=== PATIENT | male | born 1955 | race Caucasian/White ===

== ENCOUNTER → 2018-06-19 00:41 | Outpatient (CLI) | payer BC, SELFPAY ==
[2018-06-19 10:27] LABS: Cholesterol 229 mg/dL (50-200); HDL Cholesterol 47 mg/dL (40-60); LDL CHOLESTEROL 166 mg/dL (<100); Triglyceride 106 mg/dL (30-150)
== END ==
PROVIDERS: PCP Emergency Medicine; Visit Provider Emergency Medicine
DX: E78.5 Hyperlipidemia, unspecified (principal); Z12.5 Encounter for screening for malignant neoplasm of prostate; N40.0 Benign prostatic hyperplasia without lower urinary tract symptoms
CPT/HCPCS: 36415; 80061; 83721; 84153

== ENCOUNTER → 2018-07-01 08:25 | Outpatient (CLI) | payer BC, SELFPAY ==
[2018-07-02 09:57] LABS: HIV-1/2 Ag & Ab Screen Negative (NEGAT)
[2018-07-02 10:42] LABS: Hepatitis C Ab w Rflx HCV PCR Negative (NEGAT)
[2018-07-02 15:00] LABS: Chlamydia Result Negative; GC Result Negative; Specimen Description URINE
[2018-07-02 15:10] LABS: Syphilis Serology (RPR) Negative (Negative)
== END ==
PROVIDERS: PCP Emergency Medicine; Visit Provider Emergency Medicine
DX: Z11.59 Encounter for screening for other viral diseases (principal); Z11.4 Encounter for screening for human immunodeficiency virus [HIV]; Z11.3 Encounter for screening for infections with a predominantly sexual mode of transmission; Z11.9 Encounter for screening for infectious and parasitic diseases, unspecified
CPT/HCPCS: 36415; 86803; 87389; 87491; 87591; 86592

== ENCOUNTER 2018-07-31 10:59 | Outpatient (REF) | payer BC, SELFPAY ==
--- NOTE | 2018-07-31 09:38 | TONG_PTH ---
PATIENT: Tr Hood LOC: [facility] U#:[id number] AGE/SX: 62/M ROOM: RE07/31/[address]: Elliott Purdy MD : 1955 BED: DIS: 07/31/2018 SPEC #: [id number] RECD: 07/31/18 12:49 STATUS: DELFINO REQ #: [id number] JUAN PABLO: 07/31/18 09:[address]: Elliott Purdy DEPT: Surgical Specimen RECD BY: Maria E Plunkett ENTERED: 07/31/18 12:50 SP TYPE: LIZZY CLAYTON DR: Damion Sosa DO Tissues: 1 - TONGUE BIOPSY Procedures: GROSS AND MICRO LEVEL 4 Comments: [id number]
== END 2018-07-31 11:19 ==
LOC: LBN 10:59
PROVIDERS: PCP Emergency Medicine; Visit Provider Otolaryngology
DX: K14.8 Other diseases of tongue (principal); K13.21 Leukoplakia of oral mucosa, including tongue
CPT/HCPCS: 88305

== ENCOUNTER 2018-10-19 01:28 | Outpatient (CLI) | payer BC, SELFPAY ==
[2018-10-19 08:20] LABS: Cholesterol 259 mg/dL (50-200); HDL Cholesterol 44 mg/dL (40-60); LDL CHOLESTEROL 190 mg/dL (<100); Triglyceride 146 mg/dL (30-150)
== END 2018-10-19 01:48 ==
PROVIDERS: PCP Emergency Medicine; Visit Provider Emergency Medicine
DX: E78.5 Hyperlipidemia, unspecified (principal)
CPT/HCPCS: 36415; 80061; 83721

== ENCOUNTER 2019-04-22 02:52 | Outpatient (CLI) | payer BC, SELFPAY ==
[2019-04-22 10:37] LABS: Calculated LDL 178; Cholesterol 244 mg/dL (50-200); HDL Cholesterol 46 mg/dL (40-60); Triglyceride 100 mg/dL (30-150)
== END 2019-04-22 03:12 ==
PROVIDERS: PCP Emergency Medicine; Visit Provider Emergency Medicine
DX: E78.5 Hyperlipidemia, unspecified (principal)
CPT/HCPCS: 36415; 80061; 83721

== ENCOUNTER 2020-02-17 16:40 | Outpatient (REF) | payer BC, SELFPAY ==
--- NOTE | 2020-02-17 12:20 | TONG_PTH ---
PATIENT: Tr Hood LOC: [facility] U#:[id number] AGE/SX: 64/M ROOM: RE02/17/[address]: Elliott Purdy MD : 1955 BED: DIS: 02/17/2020 SPEC #: [id number] RECD: 02/17/20 16:55 STATUS: DELFINO REQ #: [id number] JUAN PABLO: 02/17/20 12:[address]: Elliott Purdy DEPT: Surgical Specimen RECD BY: Maria E Plunkett ENTERED: 02/17/20 17:02 SP TYPE: LIZZY CLAYTON DR: Damion Sosa DO Tissues: 1 - TONGUE BIOPSY Procedures: GROSS AND MICRO LEVEL 4 SPECIAL STAIN 1 Comments: [id number]
== END 2020-02-17 17:00 ==
LOC: LBN 16:40
PROVIDERS: PCP Emergency Medicine; Visit Provider Otolaryngology
DX: K14.8 Other diseases of tongue (principal); D37.02 Neoplasm of uncertain behavior of tongue
CPT/HCPCS: 88305; 88312

== ENCOUNTER → 2023-10-02 02:15 | Outpatient (CLI) | payer BC, SELFPAY ==
--- NOTE | 2023-10-02 07:15 | DI.NM_ITS ---
APPROVED REPORT Exam: Exercise Treadmill Patient Location: Out-Patient Room/Bed: Stress Nurse: Jaeme Fine RN Ordering Provider:VARGHESE ESQUEDA, Contact Number: [phone] BMI: 28.88 Baseline Rhythm: SR - PVC's, T wave inversion in lead III/V6, couplet, intermittent bigeminy Indications: Chest pain Medical History Medical History: HLD, dilated aortic root, CAD, hx of NSTEMI w/ stents, EF 60% Cardiac Medications: Asa, Nitro PRN Allergies: lisinopril, statins Cardiac Risk Factors: +family history, CVD, HTN, HLD Previous Cardiac Procedures: Hx of PCI in 2016 Pretest Chest Pain Characteristics: No chest pain Exercise History: Indeterminate Physical Disabilities: Hx of plantar faciatis Lung Sounds: Clear Heart Sounds: Regular, S1/S2 Stress Test Details Test: Exercise stress testing was performed using a Mac protocol. Nuclear Acquisition: Rest Tc-99m/Stress Tc-99m 1 day Rest Isotope: Tc-99m Sestamibi. Dose: 11 Date: 10/02/2023 Injection Time: 0900 Stress Isotope: Tc-99m Sestamibi. Dose: 33 Date: 10/02/2023 Injection Time: 10:35 HR Resting HR Supine: 75 bpm Max Heart Rate (APMHR): 154.541929 bpm Resting HR Standin bpm Target HR (85% APMHR): 130.526330 bpm Max HR Achieved: 174 bpm % of APMHR: 112.99 Recovery HR: 84 bpm HR response to stress: Accelerated HR response to stress BP Resting BP Supine: 184/92 mmHg Resting BP Standin/86 mmHg Max BP: 212/98 mmHg Recovery BP: 174/82 mmHg BP response to stress: Normal blood pressure response to stress. ECG Resting ECG: Sinus Rhythm Ectopy: PVC's, couplet, int. bigeminy, t wave inversion in lead III/V6 Stress ECG: Sinus Tachycardia, , SVT ST Change: Diffuse ST/T wave changes @ peak exercise Stage: 3 Arrhythmia: Couplets, PAC's, SVT Comment: Patient asymptomatic Recovery ECG: Sinus Rhythm Recovery ST Change: Diffuse ST/T wave changes returned to baseline with recovey Recovery Arrhythmia: PVC's, PAC's, couplet, bigeminy Clinical Reason for Termination: ST changes, SVT Stress Symptoms: None Exercise duration: 6 min50 sec Highest Stage Reached: Stage 3: 3.4 mph at 14% grade. Exercise capacity: 8.3 METs Angina Score: None Soto Treadmill Score: 6 Rate Pressure Product: [id number] Stress ECG Conclusion 1. Resting electrocardiogram showed first-degree AV block, late transition, PVCs 2. Patient exercised on the Mac protocol and completed a workload of 8.3 METS 3. Normal heart rate and blood pressure response to exercise. The patient achieved greater than 100% of predicted heart rate for age 4. Electrocardiographic portion of the test showed 1 to [address] depression in the inferior and ant erolateral leads at peak exercise 5. Atrial and ventricular ectopy was noted 6. See MPI report Soto Treadmill Score is 6 which is Low risk. Stress Test Summary STAGE Time (mins) Speed (mph) Grade (%) HR BP SpO2 SYMPTOMS METS Supine 75 184/92 Standing 82 162/86 1 3 1.7 10 108 135/74 4.5 2 6 2.5 12 126 7 3 9 3.4 14 164 10 1 min recovery 117 190/88 3 min recovery 92 212/98 6 min recovery 86 198/94 9 min recovery 84 184/92 12 min recovery 84 174/82 Patient presented for stress test reporting that he had an episode where he had some chest pressure a nd it felt like something was trying to escape his chest. Patient also reported that with strenuous exercise he often felt like there was fluid that would build up and he needed to cough it up. During stress test patient began stage 3 and went into SVT, max rate of 174 bpm. The test was termina jovi at this time and patient did not report any symptoms. During recovery, patient stated he felt lik e if he had continued exercising he would have induced that feeling he described about fluid build up . Patient recovered and completed the final imaging portions of his test. reviewed his stress t est and had no specific concerns related to the 12 lead. MPI Conclusion Myocardial perfusion is notable for moderate inferior wall ischemia. There is no evidence of myocard ial infarction Ejection fraction is 42% with inferior wall motion abnormality Radiologist Interpretation Radiologist agrees with Consultant's Interpretation. Radiologist Interpretation by: Ghada Jordan MD Interpretation Date/Time: 10/02/2023 15:35:44
== END ==
PROVIDERS: PCP Family Medicine; Visit Provider Family Medicine
DX: R07.9 Chest pain, unspecified (principal)
CPT/HCPCS: 78452; 93017

== ENCOUNTER 2023-10-06 15:33 | Inpatient (IN) | payer BC, SELFPAY ==
[2023-10-06] VITALS (75 sets, daily range): BP systolic 154–227; BP diastolic 69–97; PULSE 62–87; RESP 11–30; TEMP 37; O2SAT 94–99
--- NOTE | 2023-10-06 15:30 | RT.EKG_ITS ---
APPROVED REPORT Exam: Resting ECG Reason for Exam: weak fatigued Patient Location: E HR:79 bpm ECG Measurements Heart Rate 79 AXIS IA 214 P 16 QRSd 102 QRS -30 QT 417 T 25 QTc 477 Conclusion sinus 79 normal axis PVCs LVH
[2023-10-06 16:11] LABS: Abs Immature Grans 0.02 10^3/uL (0.0-0.06); Absolute Basophil Count 0.04 10^3/uL (0.0-0.2); Absolute Eosinophil Count 0.23 10^3/uL (0.0-0.7); Absolute Lymphocyte Count 1.45 10^3/uL (1.2-3.4); Absolute Monocyte Count 0.92 10^3/uL (0.1-0.8); Absolute Neutrophil Count 3.54 10^3/uL (1.2-6.7); Basophils % 0.6; Eosinophils % 3.7; HCT 51.7 % (40.0-50.0); HGB 17.2 g/dL (13.5-17.5); Immature Grans % 0.3; Lymphocytes % 23.4; MCH 28.5 pg (27.0-33.0); MCHC 33.3 % (32.0-36.0); MCV 86 fL (80-95); MPV 9.3 fL (8.0-11.0); Monocytes % 14.8; Neutrophils % 57.2; Platelet Count 205 10^3/uL (130-400); RBC 6.04 10^6/uL (4.36-5.78); RDW 13.2 % (11.8-14.1); RDW-SD 41.7 fL
[2023-10-06] MEDS: Omnipaque 350 MG/ML 500 ML BTL-Imaging package 85 ML IJ (16:22)
[2023-10-06] MEDS: Normal Saline - Diluent 50 ML VIAL IJ (16:25)
[2023-10-06 16:29] LABS: ALT 35 U/L (16-63); AST 56 U/L (15-37); Albumin 3.6 g/dL (3.4-5.0); Alkaline Phosphatase 120 U/L (46-116); Anion Gap 3.7 mmol/L (3-11); BUN 11 mg/dL (7-18); Bilirubin, Total 0.8 mg/dL (0.2-1.0); CO2 30.3 mmol/L (21.0-32.0); Calcium 9.1 mg/dL (8.5-10.1); Chloride 102 mmol/L (98-107); Diff Comment RBC Morph Reviewed; Estimated GFR 83.01 (mL/min/1.73m2); Glucose 126 mg/dL (74-106); Magnesium 2.2 mg/dL (1.8-2.4); Potassium 3.7 mmol/L (3.5-5.1); RBC Morphology Normal; Sodium 136 mmol/L (136-145); Troponin I < 50 ng/L (<or=60)
[2023-10-06 16:34] LABS: TSH (W/Ref FT4) 2.27 uIU/mL (0.36-3.74)
--- NOTE | 2023-10-06 16:35 | DI.CT_ITS ---
Exam(s) CT BRAIN NECK CTA EXAM: CT BRAIN NECK CTA CLINICAL HISTORY: slurred speech. TECHNIQUE: Imaging Protocol: Axial CT angiography was performed with multi-slice acquisition and mu lti-planar and 3D reconstructions. CONTRAST MATERIAL: Intravenous: Omnipaque 350 Contrast volume:100 ml COMPARISON: none FINDINGS: CT Head W/O and W contrast: Ventricles and Extra axial spaces: Normal in size and morphology for the patient's age. Hemorrhage: None. Cerebral parenchyma: No evidence of acute infarct or mass.. Old left basal ganglia lacunar infarct . White matter changes of small vessel disease. Midline shift: None. Brainstem/Cerebellum: No acute findings.. Calvarium: Normal. Visualized Paranasal sinuses/Mastoids: Mild ethmoid sinus mucosal thickening. Soft Tissues: Unremarkable. Enhancement: Normal. CTA Brain W: Internal Carotid Arteries: Petrous: Normal. Cavernous: Normal. Cerebral: Normal. Middle Cerebral Arteries: Right: No aneurysm, occlusion or significant stenosis. Left: No aneurysm, occlusion or significant stenosis. Anterior Cerebral Arteries: Right: No aneurysm, occlusion or significant stenosis. Left: No aneurysm, occlusion or significant stenosis. Posterior cerebral Arteries: Right: No aneurysm, occlusion or significant stenosis. Left: No aneurysm, occlusion or significant stenosis. Vertebral Arteries: Right: No aneurysm, occlusion or significant stenosis. Left: No aneurysm, occlusion or significant stenosis. Basilar Artery: Diminutive caliber. No aneurysm, occlusion or significant stenosis. CTA Neck W: Common Carotid: Right: No dissection, occlusion or significant stenosis. Left: No dissection, occlusion or significant stenosis. External Carotid: Right: No dissection, occlusion or significant stenosis. Left: No dissection, occlusion or significant stenosis. Internal Carotid: Right: Mild calcific plaque proximally. No dissection, occlusion or significant stenosis. Left: Mild calcific plaque proximally no dissection, occlusion or significant stenosis. Vertebral Artery: Right: Somewhat diminutive caliber. No dissection, occlusion or significant stenosis. Left: No dissection, occlusion or significant stenosis. Lung Apices: Limited evaluation due to respiratory motion. Multiple small, less than 1 cm, nodules a re noted in both lungs both upper and lower lobes. Bones: No acute abnormality. Anterior fusion warren dware from C4 through C7. Degenerative changes C3-4. Soft Tissues: Normal. IMPRESSION: 1. CT a brain normal CTA examination of the [place]. 2. Head CT: Old left basal ganglia lacunar infarct. 3. CTA neck: Mild calcific plaque at the proximal internal carotid arteries without significant steno sis. 4. Numerous bilateral pulmonary nodules. Findings could represent metastatic disease. Chest CT coul d be performed for further evaluation. Findings called to Maria E Allan of the emergency department Unexpected findings RADIATION DOSE DELIVERED: Total DLP DATA REPOSITORY: All CT scans at this facility are submitted to the National Radiology Data Registry (NRDR) Dose Index Registry (DIR) with the [employer] (ACR). RADIATION OPTIMIZATION: All CT scans at this facility use at least one of these dose optimization te chniques: automated exposure control; mA and/or kV adjustment per patient size (includes targeted exa ms where dose is matched to clinical indication); or iterative reconstruction.
--- NOTE | 2023-10-06 16:49 | DI.CT_ITS ---
Exam(s) CT CHEST WO EXAM: CT CHEST WO CLINICAL HISTORY: pulmonary lesions. TECHNIQUE: Imaging protocol: Axial computed tomography images were obtained and coronal and sagittal reformatted images were created and reviewed. COMPARISON: CT CT BRAIN NECK CTA from 10/06/2023 FINDINGS: Tracheobronchial tree: Patent where visualized. Pulmonary parenchyma: There are numerable noncalcified pulmonary nodules up to 8 mm in size. There i s an irregular spiculated nodular area in the base of the right lower lobe measuring 1.6 cm in diamet er. Mediastinum and [place]: Mildly enlarged lymph nodes are seen in the mediastinum. The largest measures 1.6 x 0.8 cm. The esophagus is unremarkable. Thyroid gland: Unremarkable. Pleura: No effusion or pneumothorax. Heart: Mild cardiomegaly. Coronary artery calcification and/or stents are present. No pericardial e ffusion. Aorta: Thoracic aorta non-dilated. Atherosclerosis is present. Upper abdomen: There is contrast seen in the renal collecting systems secondary to the contrast CT s can from earlier in the day. Lymph nodes: Within normal limits. Soft tissues: Unremarkable. Bones:Within normal limits for the patient's age. Anterior cervical disc fusion is seen at the lower cervical spine. IMPRESSION: 1. Irregular spiculated nodular in the base of the right lower lobe measuring 1.6 cm in diameter. Pr imary or metastatic neoplastic process is suspected. 2. Multiple noncalcified pulmonary nodules up to 8 mm in size. Differential considerations should in clude metastatic disease, acute infection/inflammation and prior granulomatous disease. 3. PET CT scan of the chest should be considered for further evaluation. 4. Findings were discussed with Maria E Allan at 5:36 p.m. on 10/06/2023. RADIATION DOSE DELIVERED: Total DLP Total DLP DATA REPOSITORY: All CT scans at this facility are submitted to the National Radiology Data Registry (NRDR) Dose Index Registry (DIR) with the [employer] (ACR). RADIATION OPTIMIZATION: All CT scans at this facility use at least one of these dose optimization te chniques: automated exposure control; mA and/or kV adjustment per patient size (includes targeted exa ms where dose is matched to clinical indication); or iterative reconstruction.
[2023-10-06 16:51] LABS: Bilirubin Negative (Negative); Blood Negative (Negative); Clarity Clear (Clear); Glucose Negative (Negative); Ketones Negative (Negative); Leukocyte Esterase Negative (Negative); Nitrite Negative (Negative); Specific Gravity 1.015 (1.005-1.025)
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
[2023-10-06] MEDS: Labetalol 100 MG/20 ML VIAL 10 MG IVP (19:21)
[2023-10-06 19:28] LABS: Troponin I < 50 ng/L (<or=60)
--- NOTE | 2023-10-06 19:46 | NUR.NOTE ---
Pt able to swallow water without difficulty.
[2023-10-06] MEDS: Losartan 25 MG TAB PO (20:39)
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
[2023-10-07] VITALS (62 sets, daily range): BP systolic 157–170; BP diastolic 71–84; PULSE 59–80; RESP 12–31; TEMP 35.7–35.9; O2SAT 96–98
--- NOTE | 2023-10-07 | DI.MRI_ITS ---
Exam(s) MR BRAIN WO/W EXAM: MR BRAIN WO/W CLINICAL HISTORY: intermittent speech deficits, ?CVA vs malignancy TECHNIQUE: Multiplanar multisequence MRI of the brain was performed. CONTRAST MATERIAL: IV Contrast: 20 mL of Dotarem contrast administered. COMPARISON: CT CT BRAIN NECK CTA from 10/06/2023 FINDINGS: VENTRICLES AND EXTRA AXIAL SPACES: Normal in size and morphology for the patient's age. HEMORRHAGE: None. CEREBRAL PARENCHYMA: There is a area of restricted diffusion in the right cox radiata consistent w ith an acute/subacute infarct. No space-occupying lesion identified. There are areas of hyperintense signal seen in the white matter on the FLAIR and T2 weighted images consistent with small vessel isc hemic disease. MIDLINE SHIFT: None. BRAINSTEM/CEREBELLUM: Normal. CALVARIUM: Normal. ENHANCEMENT: No suspicious enhancement identified. VISUALIZED PARANASAL SINUSES/MASTOIDS: Clear. [place]: Normal flow void. [place]: Unremarkable. OTHER FINDINGS: IMPRESSION: 1. Findings of an acute infarct in the right cox radiata. 2. Cerebral atrophy and small vessel ischemic disease consistent with the patient's age. 3. No evidence of an intracranial mass or enhancing lesion. 4. Findings were discussed with the primary care team at 10:56 a.m. on 10/07/2023. DATA REPOSITORY:
--- NOTE | 2023-10-07 | DI.US_ITS ---
Exam(s) US ABDOMEN EXAM: US ABDOMEN CLINICAL HISTORY: transaminitis TECHNIQUE: Ultrasound abdomen performed using standard protocol. COMPARISON: No exams were available for comparison FINDINGS: ABDOMINAL AORTA AND IVC: Visualized portions normal caliber. PANCREAS: Normal where visualized. LIVER: There is an echogenic liver consistent with fatty infiltration. The left lobe is largely obsc ured by overlying bowel. The liver measures 14.2 cm long. Hepatopedal flow in the Portal Vein. GALLBLADDER:No evidence of cholelithiasis. No evidence of wall thickening. No pericholecystic fluid i dentified. BILIARY SYSTEM: Common bile duct measures < 7 mm. No intrahepatic biliary ductal dilation. BONDS'S SIGN: Negative. KIDNEYS: Kidneys are symmetric in size. No evidence of renal calculi. No evidence of hydronephrosis. There is a 1.0 x 1.1 x 1.0 cm simple cyst in the right kidney. No follow-up is recommended. SPLEEN: Not enlarged. ASCITES: None seen. IMPRESSION: 1. Fatty infiltration of the liver. 2. No evidence of cholelithiasis or biliary ductal dilatation. DATA REPOSITORY:
--- NOTE | 2023-10-07 | DI.US_ITS ---
APPROVED REPORT EXAM: Comprehensive 2D, Doppler, and color-flow Echocardiogram Patient Location: ER Room/Bed: 7 [employer] Salesperson: Estelle Raines RDCS (AE) Indications: TIA, Known CAD Other Information Study Quality: Adequate. Technically limited study due to exam done bedside ER. Conclusion Normal left ventricular wall thickness and chamber size. Ejection fraction is 45 to 50%. There are inferior posterior wall motion abnormalities (hypokinesis). There is stage I diastolic dysfunction Normal right ventricular size and systolic function Both atria are normal in size The aortic valve is trileaflet and sclerotic with mild regurgitation Normal mitral valve with moderate regurgitation Estimated right ventricular systolic pressure is 28 mmHg Dilated ascending aorta measuring 4.14 cm Wall motion Left Ventricle The left ventricle is normal size. Left ventricular systolic function is mildly decreased. There is n ormal left ventricular wall thickness. Regional wall motion abnormalities are noted. Inferior and pos terior franco are hypocontractile There is no ventricular septal defect visualized. LVEF is 47%. Right Ventricle The right ventricle is normal size. The right ventricular systolic function is normal. Atria The left atrium size is normal. The right atrium size is normal. The interatrial septum is intact wit h no evidence for an atrial septal defect. Aortic Valve The Aortic valve is sclerotic. Aortic valve is trileaflet. No hemodynamically significant valvular ao rtic stenosis. Mild aortic regurgitation. Mitral Valve The mitral valve is normal in structure. No evidence of mitral valve stenosis. Moderate mitral regurg itation. Tricuspid Valve The tricuspid valve is normal in structure. There is no tricuspid valve stenosis. Trace tricuspid reg urgitation. The RVSP is 28.5g. Pulmonic Valve The pulmonary valve is normal in structure. There is no pulmonic valvular stenosis. Mild pulmonic reg urgitation. Great Vessels The aortic root is normal in size. The ascending aorta is moderately dilated. Aortic arch is normal in caliber. IVC is normal in size and collapses >50% with inspiration. Pericardium There is no pericardial effusion. 2D Dimensions IVSD d PLAX 0.93 cm M: 0.6-1.2 Ao Root d 3.53 cm M: 3.1 - 3.7 LVPW d PLAX 0.98 cm M: 0.6 - 1.2 Ao Asc Diam d 4.14 cm M: 2.6 - 3.4 LVID d PLAX 5.41 cm M: 4.2 - 5.8 LVDs 4.04 cm M: 2.5 - 4.0 LV EF Teichholz 49.5 % FS 25.32 % LV EDV (Teich) 142.2 mL LV ESV (Teich) 71.8 mL M-Mode TAPSE 2.17 cm (M/F) >1.7 Auto EF LV EDV A4C 182.3 mL LV EDV A2C 155.0 mL LV EDV BP 169.0 mL LV ESV A4C 93.2 mL LV ESV A2C 83.3 mL LV ESV BP 88.7 mL LVEF(%) A4C 48.8 % LVEF(%) A2C 46.3 % LVEF(%) BP 47.5 % LV SV A4C 89.0 ml LV SV A2C 71.7 ml LV SV BP 80.3 ml LV CO A4C 6.4 L/min LV CO A2C 5.0 L/min LV CO BP 5.7 L/min HR A4C 71.83 BPM HR A2C 70.32 BPM LV EDV Index (BP) LV Strain Long Pk Overal Avg (s) 15.47 RV Strain Global Peak Long. Strain A4C 14.21 Global Peak Long. Strain A4C FW 17.61 LA Volume LA Length A4C 5.1 cm LA Length A2C 5.8 cm LA Area A4C s 14.87 cm2 LA Area A2C s 22.60 cm2 LA Vol A4C A-L 36.49 mL LA Vol A2C A-L 74.84 mL LA Vol Biplane A-L 55.5 mL LA Vol/BSA A4C A-L LA Vol/BSA A2C A-L LA Vol/BSA BP A-L 24.7 mL/m2 LA Vol A4C MOD 34.7 mL LA Vol A2C MOD 69.2 mL LA Vol BP MOD 51.8 mL RA Volume RA Area A4C 11.8 cm2 RA ESV A4C (A-L) 24.9mL RA Vol/BSA A4C A-L RA Length A4C 4.7 cm RA ESV A4C (MOD) 23.4mL LV Diastology MV E' medial 0.052 (>0.07 m/s) MV E Vmax 0.79 (0.4-1.3 m/s) MV E/E' MED 15.05 (<14) MV A Vmax 0.95 (0.4-1.3 m/s) MV E' lateral 0.075 (>0.1 m/s) E/A Ratio 0.8 MV E/E' LAT 10.42 (<14) MV E' Average 0.064 m/s MV E/E'(average) 12.32 Aortic Valve AoV Vmax 2.05 m/s LVOT Vmax 1.37 m/s AoV Peak Grad 44.0 mmHg LVOT Peak Grad 7.6 mmHg AoV Area (Vmax) 2.21 cm2 LVOT VTI 0.315 m AoV VTI 0.431 m LVOT Mean Grad 4.8 mmHg AoV Mean Juan Manuel. 1.34 m/s LVOT SV 104.15 mL AoV Mean Grad 8.4 mmHg LVOT Diam s 2.05 cm AoV Area (VTI) 2.42 cm2 AV Regurg Peak Gr. 71.20 mmHg Velocity Ratio 0.67 AR Decel [place] 3.2m/sec2 AR DT 1313 msec AR PHT 381 msec AR Vmax 4.22 m/s Mitral Valve MV DT 382 (160-240 msec) Pulmonary Valve PV Vmax 0.83 (0.5-1.5 m/s) RVOT Vmax 0.71 m/s PV Peak Grad 2.8 mmHg RVOT Peak Gr. 2.0 mmHg PV Mean [place] 0.54 m/s RVOT VTI 0.110 m PV Mean Grad 1.4 mmHg RVOT Mean Gr. 0.8 mmHg Tricuspid Valve RA Pressure 3.00 mmHg TR Vmax 2.52 m/s TV S' 0.15 m/s TR Peak Grad 25.4 mmHg RVSP (TR) 28.5 mmHg
[2023-10-07] MEDS: Clopidogrel 75 MG TAB PO ×2 (01:08→08:41)
[2023-10-07 02:11] LABS: Source Nasal/Nares
[2023-10-07 02:35] LABS: COVID-19 PCR Negative (Negative)
[2023-10-07 05:51] LABS: Hemoglobin A1C 5.8 % (<5.7)
[2023-10-07 05:58] LABS: ALT 29 U/L (16-63); AST 53 U/L (15-37); Albumin 3.3 g/dL (3.4-5.0); Alkaline Phosphatase 107 U/L (46-116); Anion Gap 5.5 mmol/L (3-11); BUN 10 mg/dL (7-18); Bilirubin, Total 0.8 mg/dL (0.2-1.0); CO2 29.5 mmol/L (21.0-32.0); Calculated LDL 146 mg/dL (<100); Chloride 104 mmol/L (98-107); Cholesterol 224 mg/dL (<200); Estimated GFR 83.01 (mL/min/1.73m2); Glucose 103 mg/dL (74-106); HDL Cholesterol 44 mg/dL (40-60); Potassium 3.9 mmol/L (3.5-5.1); Sodium 139 mmol/L (136-145); Total Protein 7.5 g/dL (6.4-8.2); Triglyceride 172 mg/dL (<150)
[2023-10-07] MEDS: Aspirin 81 MG CHEW PO (08:41)
[2023-10-07] MEDS: Enoxaparin 40 MG/0.4 ML SYR SC (08:41)
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
[2023-10-07] MEDS: Gadoterate meglumine 20 ML SYRINGE IVP (09:49)
[2023-10-07] MEDS: Normal Saline Flush 10 ML SYR IVP ×2 (09:51→12:54)
[2023-10-07] MEDS: Breeza Beverage 473 ML BTL 900 ML PO (10:50)
[2023-10-07] MEDS: Omnipaque 350 MG/ML 50 ML BTL PO (10:51)
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
[2023-10-07] MEDS: Normal Saline - Diluent 50 ML VIAL IJ (12:55)
[2023-10-07] MEDS: Omnipaque 350 MG/ML 500 ML BTL-Imaging package 85 ML IJ (12:56)
--- NOTE | 2023-10-07 13:07 | DI.CT_ITS ---
Exam(s) CT ABDOMEN PELVIS W EXAM: CT ABDOMEN PELVIS W CLINICAL HISTORY: suspected malignancy TECHNIQUE: Imaging Protocol: Axial computed tomography images with coronal and sagittal reformatted images were created and reviewed CONTRAST MATERIAL: Intravenous: Omnipaque 350 Contrast volume:99 mL Oral: Yes COMPARISON: CT CT BRAIN NECK CTA from 10/06/2023 FINDINGS: ABDOMEN: Lung Bases: Unchanged compared to the CT scan from 10/06/2023. Liver: There are innumerable tiny hypodense lesions scattered throughout the liver measuring up to 5 mm in size. Portal, Superior Mesenteric, and Splenic Veins: Unremarkable. Gallbladder and Biliary Tract: No radiodense calculus or dilation. Pancreas: Normal density, no abnormal calcifications or inflammatory process. Spleen: There are new mobile tiny hypodense lesions scattered throughout the spleen. Adrenals: No masses seen. Kidneys: Normal size, contour and axis. Bilateral nephrolithiasis. No obstructive uropathy. There i s a simple cyst on the right kidney. No follow-up is recommended. Abdominal Aorta: Abdominal portion non-dilated. Atherosclerosis is present. Bowel: No obstruction or bowel wall thickening. Appendix is unremarkable. Peritoneal Cavity: No ascites, collection or mesenteric inflammatory response. No free air. Lymph Nodes: Within normal limits. Bones: Within normal limits for the patient's age. Soft Tissues: Unremarkable. PELVIS: Bladder: There is diffuse thickening of the wall of the urinary bladder. The bladder is underdistend ed. Reproductive Organs: Prostatic calcifications are present. Lymph Nodes: Within normal limits. Bones: Within normal limits for the patient's age. IMPRESSION: 1. Innumerable tiny hypodense lesions are scattered throughout the liver and spleen. With the findin gs in the lung a granulomatous process such as sarcoidosis should be considered. Liver biopsy should be considered for further evaluation. Metastatic disease cannot be excluded. Other inflammatory in fectious processes should also be considered. 2. Diffuse thickening of the wall of the urinary bladder. This may be due to underdistention, howeve r, cystitis or neoplasm cannot be excluded. Please correlate clinically. 3. Bilateral nephrolithiasis. No obstructive uropathy. Unexpected findings RADIATION DOSE DELIVERED: Total DLP DATA REPOSITORY: All CT scans at this facility are submitted to the National Radiology Data Registry (NRDR) Dose Index Registry (DIR) with the [employer] (ACR). RADIATION OPTIMIZATION: All CT scans at this facility use at least one of these dose optimization te chniques: automated exposure control; mA and/or kV adjustment per patient size (includes targeted exa ms where dose is matched to clinical indication); or iterative reconstruction.
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
[2023-10-07 17:19] LABS: Lab Add On Test DONE
--- NOTE | 2023-10-07 19:06 | PGE_ITS ---
Date of Service Date of service: 10/07/23 Time of Service: 17:30 Assessment and Plan Assessment and plan (1) Acute CVA (cerebrovascular accident): Status: Acute Assessment and plan: R cox radiata. With mild residual dysarthria and possibly slight expressive aphasia. Continue asa, plavix, statin. Speech therapy is following. Will need outpatient neurology referral. (2) Coronary artery disease involving [place] coronary artery of [place] heart with unstable angina pectoris: Status: Acute Assessment and plan: Did have a positive MPI last week. Asymptomatic today. Echo w/ LVEF of 45-50%, inferior wall motion abnormality, grade 1 diastolic dysfunction. Seen by cardiology. The patient does have known CAD. Recommend addressing CVA first. Will need outpatient cardiology follow up. Continue DAPT + attempt at a statin. (3) Hyperlipidemia: Status: Acute Assessment and plan: Trialing rosuvastatin. (4) Lung nodules: Status: Acute Assessment and plan: Concern for malignancy. Evaluated by Dr Keating, who will follow up with the patient as outpatient and is arranging for a PET CT. (5) Hypertension: Status: Chronic Assessment and plan: For today, we are focusing on permissive hypertension. (6) Elevated liver enzymes: Status: Acute Assessment and plan: Fatty liver on US RUQ and granulomas vs metastatic disease on CT. This will need further follow up/likely biopsy. (7) Fatty infiltration of liver: Status: Acute Assessment and plan: As above (8) Lesion of liver: Status: Acute Assessment and plan: As above (9) DVT prophylaxis: Status: Acute Assessment and plan: LMWH (10) Discharge planning issues: Status: Acute Assessment and plan: Anticipate discharge home tomorrow. Subjective Subjective Interval history since last seen: Mr Hood feels like his speech is still slower than his usual. He feels like his tongue is catching on his teeth, and that's not normal for him. His son can hear it too. His feels like his speech is more deliberate than his baseline. Otherwise, no h/a, numbness, or tingling, CP, SOB, n/v. Reports urinary frequency. Seen by cardiology, pulmonology, speech therapy. Also, discussed the case with [facility] neurology: recommend continuing aspirin and plavix as this appears to be a stroke due to small vessel disease. Exam Narrative Exam Narrative: General: A very pleasant middle-aged male who is sitting comfortably in bed, A&OX3, has a very subtle dysarthria with a perfect word choice HEENT: EOMI, MMM, tongue midline Heart: RRR, no m/r/g Lungs: CTAB Abdomen: soft, nontender, nondistended Extremities: no edema BLEs, 5/5 strength throughout Objective Last Vital Signs Temp 35.9 C L 10/07/23 17:36 Pulse 77 10/07/23 17:36 Resp 14 10/07/23 17:36 BP 159/84 H 10/07/23 17:36 Pulse Ox 98 10/07/23 17:36 Laboratory Results - last 24 hr 10/06/23 10/06/23 10/07/23 16:00 19:07 02:00 Sodium Potassium Chloride Carbon Dioxide Anion Gap BUN Creatinine Est GFR (CKD-EPI 2020) Glucose Hemoglobin A1c Calcium Total Bilirubin AST ALT Alkaline Phosphatase Troponin I < 50 Total Protein Albumin Triglycerides Total Cholesterol LDL Cholesterol, Calc HDL Cholesterol COVID-19 Source Nasal/Nares SARS-CoV-2 (PCR) Negative Path Cons Comment SEE COMMENT Add-On Test Request 10/07/23 10/07/23 05:36 16:00 Sodium 139 Potassium 3.9 Chloride 104 Carbon Dioxide 29.5 Anion Gap 5.5 BUN 10 Creatinine 1.0 Est GFR (CKD-EPI 2020) 83.01 Glucose 103 Hemoglobin A1c 5.8 H Calcium 9.0 Total Bilirubin 0.8 AST 53 H ALT 29 Alkaline Phosphatase 107 Troponin I Total Protein 7.5 Albumin 3.3 L Triglycerides 172 H Total Cholesterol 224 H LDL Cholesterol, Calc 146 H HDL Cholesterol 44 COVID-19 Source SARS-CoV-2 (PCR) Path Cons Comment Add-On Test Request DONE Objective Narrative Objective Narrative: CT/CTA head/neck; 1. CT a brain normal CTA examination of the [place]. 2. Head CT: Old left basal ganglia lacunar infarct. 3. CTA neck: Mild calcific plaque at the proximal internal carotid arteries without significant stenosis. 4. Numerous bilateral pulmonary nodules. Findings could represent metastatic disease. Chest CT could be performed for further evaluation. CT chest: 1. Irregular spiculated nodular in the base of the right lower lobe measuring 1.6 cm in diameter. Primary or metastatic neoplastic process is suspected. 2. Multiple noncalcified pulmonary nodules up to 8 mm in size. Differential considerations should include metastatic disease, acute infection/inflammation and prior granulomatous disease. 3. PET CT scan of the chest should be considered for further evaluation. US abdomen: 1. Fatty infiltration of the liver. 2. No evidence of cholelithiasis or biliary ductal dilatation. MRI brain w/w/o: 1. Findings of an acute infarct in the right cox radiata. 2. Cerebral atrophy and small vessel ischemic disease consistent with the patient's age. 3. No evidence of an intracranial mass or enhancing lesion. Echo: Normal left ventricular wall thickness and chamber size. Ejection fraction is 45 to 50%. There are inferior posterior wall motion abnormalities (hypokinesis). There is stage I diastolic dysfunction Normal right ventricular size and systolic function Both atria are normal in size The aortic valve is trileaflet and sclerotic with mild regurgitation Normal mitral valve with moderate regurgitation Estimated right ventricular systolic pressure is 28 mmHg Dilated ascending aorta measuring 4.[address] abdomen/pelvis: 1. Innumerable tiny hypodense lesions are scattered throughout the liver and spleen. With the findings in the lung a granulomatous process such as sarcoidosis should be considered. Liver biopsy should be considered for further evaluation. Metastatic disease cannot be excluded. Other inflammatory infectious processes should also be considered. 2. Diffuse thickening of the wall of the urinary bladder. This may be due to underdistention, however, cystitis or neoplasm cannot be excluded. Please correlate clinically. 3. Bilateral nephrolithiasis. No obstructive uropathy. PAWSS Have you Been Recently Intoxicated or Drunk Within the Last 30 days?: No Have you Ever Experienced Previous Episodes of Alcohol Withdrawal?: No Have you ever Experienced Withdrawal Seizures?: No Have you ever Experienced Delirium Tremens(DT)s?: No Have you ever undergone Alcohol Rehabilitation Treatment (i.e, inpt ot outpatient treatment programs)?: No Have you ever Experienced Blackouts?: No Have you ever Combined Alcohol with other Downers within the last 90 days?: No Have you ever Combined Alcohol with any other Substance of Abuse during the last 90 days?: No Positive Blood Alcohol level on Presentation? [PCS.BAL]: No Evidence of Increased Autonomic Activity (i.e. HR>120, tremor, sweating, agitation, nausea)?: No Result: 0 Time Spent with Patient Time Spent with Patient: 35-49 minutes Time was spent: preparing to see the patient(eg.review tests), obtaining and/or reviewing separately otained hiistory, ordering medications,tests, procedures, referring, communicating with other health home health care provider, indepentently interpreting results, counseling the patient and care coordination
[2023-10-07] MEDS: Rosuvastatin 5 MG TAB PO (20:43)
[2023-10-08 06:53] LABS: Abs Immature Grans 0.02 10^3/uL (0.0-0.06); Absolute Basophil Count 0.04 10^3/uL (0.0-0.2); Absolute Eosinophil Count 0.25 10^3/uL (0.0-0.7); Absolute Lymphocyte Count 1.13 10^3/uL (1.2-3.4); Absolute Monocyte Count 0.83 10^3/uL (0.1-0.8); Absolute Neutrophil Count 4.18 10^3/uL (1.2-6.7); Basophils % 0.6; Eosinophils % 3.9; HCT 49.6 % (40.0-50.0); HGB 16.6 g/dL (13.5-17.5); Immature Grans % 0.3; Lymphocytes % 17.5; MCH 28.4 pg (27.0-33.0); MCHC 33.5 % (32.0-36.0); MCV 85 fL (80-95); Monocytes % 12.9; Neutrophils % 64.8; Platelet Count 196 10^3/uL (130-400); RBC 5.84 10^6/uL (4.36-5.78); RDW 13.5 % (11.8-14.1); RDW-SD 42.1 fL; WBC 6.45 10^3/uL (4.4-10.8)
[2023-10-08 07:09] LABS: Anion Gap 8.1 mmol/L (3-11); BUN 12 mg/dL (7-18); CO2 27.9 mmol/L (21.0-32.0); Calcium 9.2 mg/dL (8.5-10.1); Chloride 104 mmol/L (98-107); Estimated GFR 83.01 (mL/min/1.73m2); Glucose 104 mg/dL (74-106); Magnesium 2.2 mg/dL (1.8-2.4); Potassium 3.8 mmol/L (3.5-5.1); Sodium 140 mmol/L (136-145)
[2023-10-08 07:40] VITALS: BP 158/86; PULSE 72; RESP 18; TEMP 36.4; O2SAT 97
[2023-10-08] MEDS: Enoxaparin 40 MG/0.4 ML SYR SC (07:43)
[2023-10-08] MEDS: Clopidogrel 75 MG TAB PO (07:44)
[2023-10-08] MEDS: Aspirin 81 MG CHEW PO (07:44)
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
[2023-10-08 11:05] LABS: Lyme Ab w Rflx to Lyme Confirm Negative (Negative)
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
--- NOTE | 2023-10-08 13:34 | CHAPLAIN ---
I had a brief visit with Babak. He was up in a chair in his room. I explained my role and offered support. He said he's in touch with family and was expecting his to be in soon. At [facility] it was determined that he'd be discharged later today.
--- NOTE | 2023-10-08 14:55 | PDOC.CMDIS ---
Date of service: 10/08/23 Time of Service: 14:55 LACE Index Scoring Tool Questions: Length of Stay (in days): 1 Was the patient admitted via the E.D.?: Yes Comorbidities: Cerebrovascular Disease, Any Tumor and Liver or Renal Disease E.D. Visits: 1 Answers: Total Score: 10 Risk of Readmission: High Risk Care Management Discharge Plan Reason for Hospitalization: CVA Discharge Plan: Tr will be discharged home with no new services. He will follow up with Neurology for the CVA, Pulmonology for the new pulmonary nodule identified on Ct scan, and his PCP. He will transport via private vehicle with family. Patient/Family Education Needs: Review of discharge instructions, limitations, follow up plan, discuss Ask Me Three
[2023-10-09 22:32] LABS: Anaplasma phagocytophilum Negative (Negative); B. miyamotoi PCR Negative (Negative); Babesia divergens/MO-1 Negative (Negative); Babesia duncani Negative (Negative); Babesia microti Negative (Negative); Ehrlichia chaffeensis Negative (Negative); Ehrlichia ewingii/canis Negative (Negative); Ehrlichia muris eauclairensis Negative (Negative)
== END 2023-10-08 13:56 | disposition home or self-care (01) | DRG 65 ==
LOC: ER 10-07 12:26 → MS 10-07 16:35
PROVIDERS: Internal Medicine; Admitting Provider Family Medicine; Emergency Provider Physician Assistant; PCP Family Medicine; Visit Provider Family Medicine
DX: I63.89 Other cerebral infarction; I25.110 Atherosclerotic heart disease of native coronary artery with unstable angina pectoris; E78.5 Hyperlipidemia, unspecified; R91.8 Other nonspecific abnormal finding of lung field; R74.8 Abnormal levels of other serum enzymes; K76.0 Fatty (change of) liver, not elsewhere classified; I51.89 Other ill-defined heart diseases; R73.03 Prediabetes; Z95.5 Presence of coronary angioplasty implant and graft; I25.2 Old myocardial infarction; Z86.73 Personal history of transient ischemic attack (TIA), and cerebral infarction without residual deficits; Z85.810 Personal history of malignant neoplasm of tongue; K13.21 Leukoplakia of oral mucosa, including tongue; Z98.1 Arthrodesis status; R47.1 Dysarthria and anarthria; R47.01 Aphasia; I67.89 Other cerebrovascular disease; I49.3 Ventricular premature depolarization; I77.810 Thoracic aortic ectasia; R93.5 Abnormal findings on diagnostic imaging of other abdominal regions, including retroperitoneum; N20.0 Calculus of kidney; I10 Essential (primary) hypertension
CPT/HCPCS: 00123; 36415; 36416; 70496; 70498; 70553; 71250; 80048; 80053; 80061; 82962; 87635; 87798; 93005; 93270; 96374; 99285; J1650; 74177; 76700; 81003; 83036; 83735; 84443; 84484; 85025; 86618; 92523; 93010; 93306; 99233; 99239; G0378; J3490; Q9967

== ENCOUNTER 2023-10-23 08:42 | Outpatient (CLI) | payer BC, SELFPAY | END 2023-10-23 08:43 | disposition home or self-care (01) | LOC: DI.CARD 08:43 | PROVIDERS: PCP Family Medicine; Visit Provider Internal Medicine Cardiovascular Disease | DX: I25.10 Atherosclerotic heart disease of native coronary artery without angina pectoris (principal) | CPT/HCPCS: 93010 ==

== ENCOUNTER 2023-11-03 12:01 | Outpatient (CLI) | payer BC, SELFPAY ==
[2023-11-03 10:13] LABS: ESR 12 mm/hr (0-20)
[2023-11-04 12:10] LABS: Leukemia/Lymphoma by FC (Blood (See below)
[2023-11-05 00:50] LABS: Fungitell Qualitative Negative (Negative); Fungitell Quantitative Value <31 pg/mL (<60 pg/mL)
[2023-11-06 18:23] LABS: Blastomyces Ag Result Not Detected; Blastomyces Ag Value Not Detected
== END 2023-11-03 12:02 | disposition home or self-care (01) ==
LOC: LBO 12:01
PROVIDERS: PCP Family Medicine; Visit Provider Student in an Organized Health Care Education/Training Program
DX: K76.89 Other specified diseases of liver (principal); R91.8 Other nonspecific abnormal finding of lung field; R59.1 Generalized enlarged lymph nodes
CPT/HCPCS: 36415; 85652; 87449; 88185; 86140; 87385; 88184; 88189

== ENCOUNTER 2023-11-14 11:05 | Outpatient (CLI) | payer BC, SELFPAY ==
--- NOTE | 2023-11-20 08:25 | W.CARDEVENT ---
Date of service: 11/20/23 Time of Service: 08:25 Cardiac Event Recorder Referring Provider:: fely Indications:: cerebral infarction, unspecified Cardiac Event Note: 1. The underlying rhythm is sinus with an average heart rate of 68 bpm. 2. Several paroxysms of atrial fibrillation, sometimes aberrantly conducted (Shasta's phenomenon) and erroneously read by software as ventricular tachycardia. Longest run of atrial fibrillation was 9 beats at a rate of 197 bpm. 3. Aberrant conduction, no ventricular ectopy Impression: Paroxysmal atrial fibrillation
== END 2023-11-14 11:06 | disposition home or self-care (01) ==
LOC: CARDOPNVT 11:05
PROVIDERS: PCP Family Medicine; Visit Provider Internal Medicine Interventional Cardiology
DX: I21.4 Non-ST elevation (NSTEMI) myocardial infarction (principal)
CPT/HCPCS: 00123

== ENCOUNTER 2023-12-03 14:45 | Outpatient (CLI) | payer BC, SELFPAY ==
[2023-12-03 11:36] LABS: HCT 49.1 % (40.0-50.0); HGB 16.5 g/dL (13.5-17.5); MCH 29.1 pg (27.0-33.0); MCHC 33.6 % (32.0-36.0); MCV 87 fL (80-95); MPV 9.6 fL (8.0-11.0); Platelet Count 191 10^3/uL (130-400); RBC 5.67 10^6/uL (4.36-5.78); RDW 13.4 % (11.8-14.1); RDW-SD 43.2 fL; WBC 5.44 10^3/uL (4.4-10.8)
[2023-12-03 11:49] LABS: INR 1.2 (0.9-1.1); PTT Activated 28.8 sec (23.6-32.8); Prothrombin Time 11.5 sec (9.1-11.1)
[2023-12-03 12:08] LABS: Anion Gap 7.4 mmol/L (3-11); BUN 14 mg/dL (7-18); CO2 29.6 mmol/L (21.0-32.0); Calcium 9.2 mg/dL (8.5-10.1); Chloride 102 mmol/L (98-107); Estimated GFR 82.49 (mL/min/1.73m2); Glucose 127 mg/dL (74-106); Potassium 3.9 mmol/L (3.5-5.1); Sodium 139 mmol/L (136-145)
== END 2023-12-03 14:46 | disposition home or self-care (01) ==
LOC: LBO 14:45
PROVIDERS: PCP Family Medicine; Visit Provider Internal Medicine Interventional Cardiology
DX: I48.0 Paroxysmal atrial fibrillation (principal)
CPT/HCPCS: 36415; 80048; 85027; 85610; 85730

== ENCOUNTER 2024-02-12 05:08 | Outpatient (CLI) | payer BC, SELFPAY ==
[2024-02-12 09:56] LABS: Anion Gap 6.9 mmol/L (3-11); BUN 19 mg/dL (7-18); CO2 30.1 mmol/L (21.0-32.0); Calcium 9.2 mg/dL (8.5-10.1); Chloride 104 mmol/L (98-107); Estimated GFR 82.49 (mL/min/1.73m2); Glucose 106 mg/dL (74-106); Potassium 4.5 mmol/L (3.5-5.1); Sodium 141 mmol/L (136-145)
[2024-02-12 10:25] LABS: Hemoglobin A1C 5.6 % (<5.7)
== END 2024-02-12 05:09 | disposition home or self-care (01) ==
LOC: LBO 05:09
PROVIDERS: PCP Family Medicine; Visit Provider Student in an Organized Health Care Education/Training Program
DX: I25.10 Atherosclerotic heart disease of native coronary artery without angina pectoris (principal); R91.8 Other nonspecific abnormal finding of lung field
CPT/HCPCS: 36415; 80048; 83036

== ENCOUNTER 2024-07-27 15:28 | Outpatient (CLI) | payer BC, SELFPAY ==
[2024-07-27 15:32] LABS: Hemoglobin A1C 5.5 % (<5.7)
[2024-07-27 16:14] LABS: Calculated LDL 116 mg/dL (<100); Cholesterol 233 mg/dL (<200); HDL Cholesterol 46 mg/dL (40-60); Triglyceride 355 mg/dL (<150)
[2024-07-28 18:35] LABS: PSA, Screening 1.1 ng/mL (<=4.5)
== END 2024-07-27 15:29 | disposition home or self-care (01) ==
LOC: LBO 15:30
PROVIDERS: PCP Family Medicine; Visit Provider Family Medicine
DX: Z12.5 Encounter for screening for malignant neoplasm of prostate (principal); E78.5 Hyperlipidemia, unspecified; E11.51 Type 2 diabetes mellitus with diabetic peripheral angiopathy without gangrene; I70.209 Unspecified atherosclerosis of native arteries of extremities, unspecified extremity
CPT/HCPCS: 36415; 80061; 84153; 83036

== ENCOUNTER 2024-12-04 10:01 | Outpatient (REF) | payer BC, SELFPAY ==
[2024-12-04 15:27] LABS: HCT 50.7 % (40.0-50.0); HGB 18.6 g/dL (13.5-17.5); MCH 33.2 pg (27.0-33.0); MCHC 36.7 % (32.0-36.0); MCV 90 fL (80-95); MPV 9.9 fL (8.0-11.0); Platelet Count 227 10^3/uL (130-400); RBC 5.61 10^6/uL (4.36-5.78); RDW 13.1 % (11.8-14.1); RDW-SD 43.4 fL
[2024-12-04 15:34] LABS: ALT 25 U/L (16-63); AST 49 U/L (15-37); Alkaline Phosphatase 81 U/L (46-116); Anion Gap 8.4 mmol/L (3-11); BUN 19 mg/dL (7-18); Bilirubin, Total 0.66 mg/dL (0.2-1.0); CO2 30.6 mmol/L (21.0-32.0); CREATININE 1.1 mg/dL (0.70-1.30); Calcium 9.7 mg/dL (8.5-10.1); Calculated LDL 127 mg/dL (<100); Chloride 103 mmol/L (98-107); Cholesterol 227 mg/dL (<200); Estimated GFR 73.12 (mL/min/1.73m2); Glucose 76 mg/dL (74-106); HDL Cholesterol 42 mg/dL (40-60); Potassium 5.4 mmol/L (3.5-5.1); Sodium 142 mmol/L (136-145); Total Protein 7.9 g/dL (6.4-8.2); Triglyceride 291 mg/dL (<150)
[2024-12-04 15:41] LABS: Hemoglobin A1C 5.5 % (<5.7)
[2024-12-04 15:42] LABS: Prothrombin Time 10.2 sec (9.1-11.1)
== END 2024-12-04 10:02 | disposition home or self-care (01) ==
LOC: LBN 10:01
PROVIDERS: PCP Family Medicine; Visit Provider Nurse Practitioner Family
DX: E78.5 Hyperlipidemia, unspecified (principal); R04.0 Epistaxis; R73.03 Prediabetes
CPT/HCPCS: 80053; 80061; 85027; 83036; 85610

== ENCOUNTER 2024-12-27 11:34 | Outpatient (CLI) | payer BC, SELFPAY ==
[2024-12-27 09:54] LABS: Abs Immature Grans 0.02 10^3/uL (0.0-0.06); Absolute Basophil Count 0.04 10^3/uL (0.0-0.2); Absolute Eosinophil Count 0.21 10^3/uL (0.0-0.7); Absolute Lymphocyte Count 1.21 10^3/uL (1.2-3.4); Absolute Monocyte Count 0.71 10^3/uL (0.1-0.8); Absolute Neutrophil Count 3.16 10^3/uL (1.2-6.7); Basophils % 0.7 %; Eosinophils % 3.9 %; HCT 46.9 % (40.0-50.0); HGB 15.8 g/dL (13.5-17.5); Immature Grans % 0.4 %; Lymphocytes % 22.6 %; MCH 30.1 pg (27.0-33.0); MCHC 33.7 % (32.0-36.0); MCV 89 fL (80-95); MPV 9.5 fL (8.0-11.0); Monocytes % 13.3 %; Neutrophils % 59.1 %; Platelet Count 193 10^3/uL (130-400); RBC 5.25 10^6/uL (4.36-5.78); RDW-SD 42.9 fL; WBC 5.35 10^3/uL (4.4-10.8)
[2024-12-27 10:27] LABS: Potassium 4.3 mmol/L (3.5-5.1)
[2024-12-27 20:09] LABS: Lab Add On Test DONE
[2024-12-27 20:21] LABS: Calculated LDL 132 mg/dL (<100); Cholesterol 207 mg/dL (<200); HDL Cholesterol 50 mg/dL (40-60); Triglyceride 127 mg/dL (<150)
== END 2024-12-27 11:35 | disposition home or self-care (01) ==
LOC: LBO 11:35
PROVIDERS: PCP Family Medicine; Visit Provider Family Medicine
DX: I10 Essential (primary) hypertension (principal); D64.9 Anemia, unspecified; I25.110 Atherosclerotic heart disease of native coronary artery with unstable angina pectoris
CPT/HCPCS: 36415; 80061; 84132; 85025

== ENCOUNTER 2025-01-22 11:42 | Emergency (ER) | payer BC, SELFPAY ==
[2025-01-22 11:41] VITALS: BP 191/75; PULSE 63; RESP 18; TEMP 35; O2SAT 98
--- NOTE | 2025-01-22 11:45 | DI.RAD_ITS ---
Exam(s) XR CHEST 1V IN DI DEPT EXAM: XR CHEST 1V IN DI DEPT CLINICAL HISTORY: Trauma. TECHNIQUE: 2D digital imaging was performed. COMPARISON: No exams were available for comparison FINDINGS: Single AP portable view. Mild cardiomegaly again noted. No pulmonary infiltrates nor pleural effusions. No pulmonary edema. No pneumothorax. IMPRESSION: No acute pulmonary findings on this single AP portable view of the chest. Mild cardiomegaly. No pulmonary edema. DATA REPOSITORY: RADIATION DOSE DELIVERED:
--- NOTE | 2025-01-22 11:45 | DI.RAD_ITS ---
Exam(s) XR SHOULDER LT COMPLETE 2+V EXAM: XR SHOULDER LT COMPLETE 2+V CLINICAL HISTORY: pain clavicle/humeral head. TECHNIQUE: 2D digital imaging was performed. COMPARISON: CR,XR XR SHOULDER RT COMPLETE 2+V from 01/22/2025 FINDINGS: 3 views No evidence of fracture or dislocation no abnormal soft tissue calcifications. No significant degene rative changes in the glenohumeral joint and AC joint. No osseous lesions. Bone density normal. IMPRESSION: No acute osseous findings in the left shoulder. DATA REPOSITORY: RADIATION DOSE DELIVERED:
--- NOTE | 2025-01-22 11:45 | DI.RAD_ITS ---
Exam(s) XR PELVIS AP EXAM: XR PELVIS AP CLINICAL HISTORY: Trauma. TECHNIQUE: 2D digital imaging was performed. COMPARISON: No exams were available for comparison FINDINGS: Single AP view: There is no evidence of pelvic nor hip fracture. Bone density normal. No osseous lesions. No obvio us degenerative changes in the hips. IMPRESSION: No acute osseous findings in the pelvis-hips. DATA REPOSITORY: RADIATION DOSE DELIVERED:
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
--- NOTE | 2025-01-22 11:45 | DI.RAD_ITS ---
Exam(s) XR SHOULDER RT COMPLETE 2+V EXAM: XR SHOULDER RT COMPLETE 2+V CLINICAL HISTORY: pain clavicle/humeral head. TECHNIQUE: 2D digital imaging was performed. COMPARISON: No exams were available for comparison FINDINGS: No evidence of fracture or dislocation of the humeral head ossicle no humeral joint. No abnormal sof t tissue calcifications in the subacromial space. Mild degenerative changes in the glenohumeral and AC joints. There is benign calcification exostoses off the undersurface of the clavicle which is pro bably related to coracoclavicular ligament. IMPRESSION: No acute osseous findings in the shoulder. DATA REPOSITORY: RADIATION DOSE DELIVERED:
[2025-01-22 12:09] LABS: Abs Immature Grans 0.04 10^3/uL (0.0-0.06); Absolute Basophil Count 0.04 10^3/uL (0.0-0.2); Absolute Eosinophil Count 0.19 10^3/uL (0.0-0.7); Absolute Lymphocyte Count 1.69 10^3/uL (1.2-3.4); Absolute Monocyte Count 0.69 10^3/uL (0.1-0.8); Basophils % 0.8 %; Eosinophils % 3.6 %; HCT 45.9 % (40.0-50.0); HGB 15.6 g/dL (13.5-17.5); Immature Grans % 0.8 %; Lymphocytes % 32.2 %; MCH 30.3 pg (27.0-33.0); MCV 89 fL (80-95); MPV 9.3 fL (8.0-11.0); Monocytes % 13.1 %; Neutrophils % 49.5 %; Platelet Count 162 10^3/uL (130-400); RBC 5.15 10^6/uL (4.36-5.78); RDW 12.7 % (11.8-14.1); WBC 5.25 10^3/uL (4.4-10.8)
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
[2025-01-22 12:18] LABS: INR 1.1 (0.9-1.1); Prothrombin Time 10.8 sec (9.1-11.1)
[2025-01-22 12:25] LABS: ALT 27 U/L (16-63); AST 43 U/L (15-37); Albumin 3.5 g/dL (3.4-5.0); Alkaline Phosphatase 70 U/L (46-116); Anion Gap 9.4 mmol/L (3-11); BUN 16 mg/dL (7-18); Bilirubin, Total 0.7 mg/dL (0.2-1.0); CO2 28.6 mmol/L (21.0-32.0); Calcium 8.8 mg/dL (8.5-10.1); Chloride 104 mmol/L (98-107); Estimated GFR 81.98 (mL/min/1.73m2); Glucose 129 mg/dL (74-106); Potassium 3.8 mmol/L (3.5-5.1); Sodium 142 mmol/L (136-145); Total Protein 7.3 g/dL (6.4-8.2); Troponin I 17 ng/L (<or=76)
[2025-01-22] MEDS: HYDROmorphone 2 MG/ML SYR 0.5 MG IVP ×2 (12:46→14:19)
--- NOTE | 2025-01-22 14:23 | DI.VRAD_ITS ---
PROCEDURE INFORMATION: Exam: CT Head Without Contrast Exam date and time: 01/22/2025 1:19 PM Age: 69 years old Clinical indication: Injury or trauma; Fall; Blunt trauma (contusions or hematomas); Concussion/head injury TECHNIQUE: Imaging protocol: Computed tomography of the head without contrast. Radiation optimization: All CT scans at this facility use at least one of these dose optimization techniques: automated exposure control; mA and/or kV adjustment per patient size (includes targeted exams where dose is matched to clinical indication); or iterative reconstruction. COMPARISON: MR BRAIN WO/W 10/07/2023 9:38 AM FINDINGS: Brain: There is a single low-density lesion within the right basal ganglia, consistent with remote lacunar infarction. There is mild diffuse heterogeneity of the white matter attenuation, consistent with chronic white matter microangiopathic ischemic changes. There is mild diffuse cerebral atrophy present. There is no evidence of intracranial hemorrhage. There is no evidence of acute intracranial injury or other pathologic process. There is no evidence of an acute ischemic event. Cerebral ventricles: The ventricular system demonstrates mild diffuse compensatory enlargement. Paranasal sinuses: There is no evidence of fluid levels, mucoperiosteal thickening, or opacification to suggest acute or chronic sinusitis. Mastoid air cells: The mastoid aircells are normal. Auditory system: There is a moderate amount of cerumen present within the external auditory canals bilaterally. Orbital cavities: The orbits are normal without evidence of fracture. There is no evidence of retro-bulbar hemorrhage. There is no evidence of globe or lens injury. Bones: The bony cranium shows no evidence of injury or other acute pathologic processes. Soft tissues: There is a scalp hematoma at the posterior apex of the occipital parietal region. IMPRESSION: 1. No evidence of an acute intracranial abnormality. 2. There is mild age-related atrophy and chronic white matter ischemic changes, with compensatory ventricular dilation. 3. There is a single low-density lesion within the right basal ganglia, consistent with remote lacunar infarction. 4. There is a scalp hematoma at the posterior apex of the occipital parietal region. PROCEDURE INFORMATION: Exam: CT Cervical Spine Without Contrast Exam date and time: 01/22/2025 1:19 PM Age: 69 years old Clinical indication: Injury or trauma; Fall; Blunt trauma (contusions or hematomas); Concussion/head injury TECHNIQUE: Imaging protocol: Computed tomography of the cervical spine without contrast. Radiation optimization: All CT scans at this facility use at least one of these dose optimization techniques: automated exposure control; mA and/or kV adjustment per patient size (includes targeted exams where dose is matched to clinical indication); or iterative reconstruction. COMPARISON: PT NM PET SCAN:EYES TO THIGHS-INI 10/31/2023 11:24 AM FINDINGS: Bones: There is no evidence of acute vertebral body element or posterior vertebral element fracture. The anterior posterior borders of the vertebral bodies are in good alignment. No evidence of acute subluxation. There is an anterior cervical fusion extending from C4 through T1. The fusion appears solid. There is a nonspecific straightening of the normal cervical lordosis. This may represent paravertebral muscle spasm versus positioning versus postsurgical changes. Clinical correlation recommended. No evidence of acute compression fractures.. There are moderate to severe degenerative changes of the cervical spine. Moderate to severe neurforaminal narrowing secondary to degenerative changes present. Moderate narrowing of the central spinal canal secondary to degenerative changes. There is no evidence of acute disc injury. The spinal canal and cord are otherwise normal.. The visualized portions of the skull base and brain are unremarkable. Lungs: Moderate atelectatic changes present within the posterior aspect of the upper lobes lungs bilaterally. Lymph nodes: There is no evidence of lymphadenopathy. Soft tissues: The prevertebal, paravertebral, pharyngeal, hypopharyngeal, and laryngeal soft tissue structures are unremarkable. IMPRESSION: 1. There is no evidence of acute vertebral body element or posterior vertebral element fracture. 2. The anterior posterior borders of the vertebral bodies are in good alignment. No evidence of acute subluxation. 3. There is an anterior cervical fusion extending from C4 through T1. The fusion appears solid. 4. There is a nonspecific straightening of the normal cervical lordosis. This may represent paravertebral muscle spasm versus positioning versus postsurgical changes. Clinical correlation recommended. 5. There are moderate to severe degenerative changes of the cervical spine. 6. There is no evidence of acute disc injury. 7. Moderate atelectatic changes present within the posterior aspect of the upper lobes lungs bilaterally. Dictated and Authenticated by: Bobby Lemus MD. Orderin [facility] Naren Harrison MD
--- NOTE | 2025-01-22 14:27 | DI.VRAD_ITS ---
PROCEDURE INFORMATION: Exam: XR Pelvis Exam date and time: 01/22/2025 1:44 PM Age: 69 years old Clinical indication: Other: Trauma TECHNIQUE: Imaging protocol: Radiologic exam of the pelvis. Views: 1 or 2 view. COMPARISON: CT ABDOMEN PELVIS W 10/07/2023 1:04 PM FINDINGS: Bones/joints: There are mild degenerative changes of the hips bilaterally. There are mild degenerative changes of the sacroiliac joints bilaterally. Sclerotic changes at the pubis likely representing osteitis pubis. No evidence of acute fracture or dislocation the bony pelvis or femora. Moderate degenerative changes of the lumbosacral spine. Compression fracture the superior endplate of the L5 vertebral body. This is age indeterminate. Soft tissues: The extra abdominal soft tissues unremarkable. IMPRESSION: Degenerative changes no definitive fractures of the bony pelvis or femora. Dictated and Authenticated by: Bobby Lemus MD. Orderin [facility] Naren Harrison MD
--- NOTE | 2025-01-22 14:31 | DI.VRAD_ITS ---
PROCEDURE INFORMATION: Exam: XR Left Shoulder Exam date and time: 01/22/2025 1:39 PM Age: 69 years old Clinical indication: Other: Trauma TECHNIQUE: Imaging protocol: Radiologic exam of the left shoulder. Views: 2 or more views. COMPARISON: CR XR CHEST 1V IN DI DEPT 01/22/2025 1:29 PM FINDINGS: Bones/joints: Anterior fusion changes present within the cervical spine. There is no evidence of fracture. There is no evidence of dislocation. The acromioclavicular joint is normal. The subacromial joint space is well-preserved. The glenohumeral joint is normal. No joint effusion is present. Lungs: Consolidation of the left lower lobe of the lung. Possible diaphragmatic hernia present within the left thorax. Consider diaphragmatic rupture. Consider CT for further evaluation. Possible pulmonary nodule measuring 13 mm within the left apex of the lung. Consider CT for further evaluation. Soft tissues: There are no soft tissue swelling or calcifications. IMPRESSION: 1. Normal shoulder radiographs. 2. Consolidation of the left lower lobe of the lung. Possible diaphragmatic hernia present within the left thorax. Consider diaphragmatic rupture. Consider CT for further evaluation. 3. Possible pulmonary nodule measuring 13 mm within the left apex of the lung. Consider CT for further evaluation. Dictated and Authenticated by: Bobby Lemus MD. Orderin [facility] Naren Harrison MD
--- NOTE | 2025-01-22 14:33 | DI.VRAD_ITS ---
PROCEDURE INFORMATION: Exam: XR Right Shoulder Exam date and time: 01/22/2025 1:31 PM Age: 69 years old Clinical indication: Other: Trauma TECHNIQUE: Imaging protocol: Radiologic exam of the right shoulder. Views: 2 or more views. COMPARISON: CR XR CHEST 1V IN DI DEPT 01/22/2025 1:29 PM FINDINGS: Bones/joints: Prior surgical repair of the right shoulder present with screw present overlying the scapular region. Osteochondroma versus osteophyte present at the inferior aspect of the distal 1/3 of the clavicle. There is no evidence of acute fracture. There is no evidence of dislocation. The acromioclavicular joint is normal. The subacromial joint space is well-preserved. The glenohumeral joint is normal. No joint effusion is present. Soft tissues: There are no soft tissue swelling or calcifications. IMPRESSION: 1. Prior surgical repair of the right shoulder present with screw present overlying the scapular region. 2. Osteochondroma versus osteophyte present at the inferior aspect of the distal 1/3 of the clavicle. 3. No evidence of acute fracture dislocation of the right shoulder. Dictated and Authenticated by: Bobby Lemus MD. Orderin [facility] Naren Harrison MD
--- NOTE | 2025-01-22 14:35 | DI.VRAD_ITS ---
PROCEDURE INFORMATION: Exam: XR Chest Exam date and time: 01/22/2025 1:29 PM Age: 69 years old Clinical indication: Other: Trauma TECHNIQUE: Imaging protocol: Radiologic exam of the chest. Views: 1 view. COMPARISON: CT CHEST WO 12/06/2024 2:59 PM FINDINGS: Lungs: Focal area density within the right hilar region may represent adenopathy versus a small mass versus vascular markings. Consider CT for further evaluation. Pleural spaces: There is no evidence of pneumothorax. There are no pleural effusions present. Heart/Mediastinum: There is mild cardiomegaly. The mediastinal contour is normal. Bones/joints: Prior surgical repair degenerative changes of the right shoulder with previously described osteophyte versus osteochondroma of the right clavicle. Soft tissues: The soft tissues of the extrathoracic region are unremarkable. IMPRESSION: 1. Focal area density within the right hilar region may represent adenopathy versus a small mass versus vascular markings. Consider CT for further evaluation. 2. There is mild cardiomegaly. 3. No evidence of thoracic trauma. Dictated and Authenticated by: Bobby Lemus MD. Orderin [facility] Naren Harrison MD
[2025-01-22 14:50] LABS: Troponin I 15 ng/L (<or=76)
[2025-01-22] MEDS: Ketorolac 15 MG/ML VIAL IVP (14:57)
[2025-01-22 15:52] VITALS: BP 146/85; PULSE 75; RESP 15; TEMP 37; O2SAT 98
== END 2025-01-22 15:56 | disposition home or self-care (01) ==
PROVIDERS: Emergency Provider Emergency Medicine; PCP Family Medicine
DX: S06.9X1A Unspecified intracranial injury with loss of consciousness of 30 minutes or less, initial encounter (principal); S49.81XA Other specified injuries of right shoulder and upper arm, initial encounter; I25.10 Atherosclerotic heart disease of native coronary artery without angina pectoris; I11.0 Hypertensive heart disease with heart failure; I50.42 Chronic combined systolic (congestive) and diastolic (congestive) heart failure; E78.5 Hyperlipidemia, unspecified; Z86.73 Personal history of transient ischemic attack (TIA), and cerebral infarction without residual deficits; Z98.1 Arthrodesis status; Z79.82 Long term (current) use of aspirin; W00.0XXA Fall on same level due to ice and snow, initial encounter; Y93.01 Activity, walking, marching and hiking; Y92.89 Other specified places as the place of occurrence of the external cause
CPT/HCPCS: 36415; 80053; 96374; 96375; 96376; 99285; 70450; 71045; 72125; 72170; 73030; 83735; 84484; 85025; 85610; J1171; J1885

== ENCOUNTER 2025-02-04 00:23 | Outpatient (CLI) | payer BC, SELFPAY ==
[2025-02-08 15:48] LABS: Apolipoprotein B, Serum 117 mg/dL; Beta VLDL Cholesterol Not Detected mg/dL (<15); Beta VLDL Triglycerides Not Detected mg/dL (<15); Cholesterol, Total, CDC 243 mg/dL; Chylomicron Cholesterol Not Detected; Chylomicron Triglycerides Not Detected; HDL Cholesterol, CDC 40 mg/dL (>=40); LDL Cholesterol 149 mg/dL; LDL Triglycerides 74 mg/dL (<=50); Lp(a) Cholesterol <5 mg/dL (<5); LpX Not detected; Triglycerides, CDC 243 mg/dL; VLDL Cholesterol 54 mg/dL (<30); VLDL Triglycerides 146 mg/dL (<120)
== END 2025-02-04 00:24 | disposition home or self-care (01) ==
LOC: LBO 00:23
PROVIDERS: PCP Family Medicine; Visit Provider Family Medicine
DX: I63.9 Cerebral infarction, unspecified (principal); E78.5 Hyperlipidemia, unspecified
CPT/HCPCS: 36415; 80061; 82172; 82664